=== PATIENT | male | born 1950 | race Caucasian/White ===

== ENCOUNTER 2020-03-08 12:09 | Emergency (ER) | payer OTHER, SELFPAY ==
--- NOTE | 2020-03-08 16:04 | EDPHYS ---
Physician Documentation [facility] Name: Tc Lowe Age: 70 yrs Sex: Male : 1950 Arrival Date: 03/08/2020 Time: 12:14 Bed 26 Private MD: STEPHEN Physician Octavio Collazo HPI: 03/08 15:55 This 70 yrs old Male presents to ER via Ambulatory with complaints of Bump On noman Throat. 15:55 The patient's rash thought to be caused by Dermatitis. The rash is located on the neck. noman The rash can be described as erythematous, raised. Onset: The symptoms/episode began/occurred 3 day(s) ago. Associated signs and symptoms: Pertinent positives: itching, Pain. Severity of symptoms: At their worst the symptoms were mild in the emergency department the symptoms are unchanged. Treatment given at home: OTC lotion/cream. The patient has not experienced similar symptoms in the past. Historical: - Allergies: 12:28 No Known Allergies; ss - PSHx: 12:28 None; ss - Immunization history:: Flu vaccine is not up to date. - Social history:: Smoking status: Patient denies any tobacco usage or history of. - Family history:: not pertinent. ROS: 15:55 Constitutional: Negative for fever, chills, and weight loss, Eyes: Negative for injury, noman pain, redness, and discharge, Neck: Negative for injury, pain, and swelling, Cardiovascular: Negative for chest pain, palpitations, and edema, Respiratory: Negative for shortness of breath, cough, wheezing, and pleuritic chest pain, Abdomen/GI: Negative for abdominal pain, nausea, vomiting, diarrhea, and constipation, Back: Negative for injury and pain, : Negative for injury, bleeding, discharge, and swelling, MS/Extremity: Negative for injury and deformity, Neuro: Negative for headache, weakness, numbness, tingling, and seizure, Psych: Negative for depression, anxiety, suicide ideation, homicidal ideation, and hallucinations, Allergy/Immunology: Negative for hives, rash, and allergies, Endocrine: Negative for neck swelling, polydipsia, polyuria, polyphagia, and marked weight changes, Hematologic/Lymphatic: Negative for swollen nodes, abnormal bleeding, and unusual bruising. 15:55 ENT: 15:55 Neck: Positive for swelling, of the neck. Exam: 15:55 Constitutional: This is a well developed, well nourished patient who is awake, alert, noman and in no acute distress. Head/Face: Normocephalic, atraumatic. Eyes: Pupils equal round and reactive to light, extra-ocular motions intact. Lids and lashes normal. Conjunctiva and sclera are non-icteric and not injected. Cornea within normal limits. Periorbital areas with no swelling, redness, or edema. ENT: Nares patent. No nasal discharge, no septal abnormalities noted. Tympanic membranes are normal and external auditory canals are clear. Oropharynx with no redness, swelling, or masses, exudates, or evidence of obstruction, uvula midline. Mucous membranes moist. Chest/axilla: Normal chest wall appearance and motion. Nontender with no deformity. No lesions are appreciated. Cardiovascular: Regular rate and rhythm with a normal S1 and S2. No gallops, murmurs, or rubs. Normal PMI, no JVD. No pulse deficits. Respiratory: Lungs have equal breath sounds bilaterally, clear to auscultation and percussion. No rales, rhonchi or wheezes noted. No increased work of breathing, no retractions or nasal flaring. Abdomen/GI: Soft, non-tender, with normal bowel sounds. No distension or tympany. No guarding or rebound. No evidence of tenderness throughout. Back: No spinal tenderness. No costovertebral tenderness. Full range of motion. Male : Normal genitalia with no discharge or lesions. Skin: Warm, dry with normal turgor. Normal color with no rashes, no lesions, and no evidence of cellulitis. MS/ Extremity: Pulses equal, no cyanosis. Neurovascular intact. Full, normal range of motion. Neuro: Awake and alert, GCS 15, oriented to person, place, time, and situation. Cranial nerves II-XII grossly intact. Motor strength 5/5 in all extremities. Sensory grossly intact. Cerebellar exam normal. Normal gait. Psych: Awake, alert, with orientation to person, place and time. Behavior, mood, and affect are within normal limits. 15:55 Neck: External neck: erythema, swelling, that is mild, of the thyroid cartilage, right aspect of thyroid, left aspect of thyroid and suprasternal notch. Vital Signs: 12:26 BP 160 / 105; Pulse 90; Resp 16; Temp 98.0(TE); Pulse Ox 98% on R/A; Weight 79.38 kg; ss Height 5 ft. 9 in. (175.26 cm); Pain 0/10; 16:15 BP 148 / 78; Pulse 87; Resp 18; Temp 97.5; Pulse Ox 98% on R/A; ph 12:26 Body Mass Index 25.84 (79.38 kg, 175.26 cm) MDM: 14:42 Patient medically screened. [facility] 15:59 Differential diagnosis: impetigo, allergic reaction. Data reviewed: vital signs, nurses noman notes. Data interpreted: secured entrance monitor: rate is 90 beats/min, rhythm is regular, Pulse oximetry: is not applicable for this patient encounter. 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 03/08 15:54 Order name: Ice pack; Complete Time: 16:07 [facility] Administered Medications: 16:06 Drug: Benadryl 25 mg Route: PO; ph 16:15 Follow up: Response: No adverse reaction ph 16:07 Drug: Bactrim (160 mg-800 mg (DS) 1 tablet Route: PO; ph 16:15 Follow up: Response: No adverse reaction ph 16:07 Drug: predniSONE 60 mg Route: PO; ph 16:15 Follow up: Response: No adverse reaction ph 16:07 Drug: Pepcid 40 mg Route: PO; ph 16:15 Follow up: Response: No adverse reaction ph Disposition: 03/08/20 16:03 Discharged to Home. Impression: Allergic contact dermatitis, Cellulitis and acute lymphangitis of face and neck. - Condition is Stable. - Discharge Instructions: Cellulitis, Adult, Contact Dermatitis, Cellulitis, Adult, [id number], Contact Dermatitis, [id number]. - Prescriptions for Hydroxyzine HCl 25 mg Oral Tablet - take 1 tablet by ORAL route every 6 hours As needed; 30 tablet. Pepcid 20 mg Oral Tablet - take 1 tablet by ORAL route every 12 hours for 10 days; 20 tablet. Bactrim DS 800- 160 mg Oral Tablet - take 1 tablet by ORAL route every 12 hours for 10 days; 20 tablet. Prednisone 20 mg Oral Tablet - take 2 tablet by ORAL route once daily for 5 days; 10 tablet. - Medication Reconciliation Form, Thank You Letter, Antibiotic Education, Prescription Opioid Use form. - Follow up: Private Physician; When: 2 - 3 days; Reason: Recheck today's complaints, Continuance of care, Re-evaluation by your physician. Follow up: Raciel Dalton MD; When: 2 - 3 days; Reason: Recheck today's complaints, Re-evaluation by your physician. - Problem is new. - Symptoms have improved. Signatures: Octavio Collazo MD MD cha Smirch, Shelby, RN RN ss Padmini Arora RN RN ph Corrections: (The following items were deleted from the chart) 16:26 16:03 03/08/2020 16:03 Discharged to Home. Impression: Allergic contact dermatitis; ph Cellulitis and acute lymphangitis of face and neck. Condition is Stable. Forms are Medication Reconciliation Form, Thank You Letter, Antibiotic Education, Prescription Opioid Use. Follow up: Private Physician; When: 2 - 3 days; Reason: Recheck today's complaints, Continuance of care, Re-evaluation by your physician. Follow up: Raciel Dalton; When: 2 - 3 days; Reason: Recheck today's complaints, Re-evaluation by your physician. Problem is new. Symptoms have improved. noman
--- NOTE | 2020-03-08 16:04 | ER ---
Nurse's Notes [facility] Name: Tc Lowe Age: 70 yrs Sex: Male : 1950 Arrival Date: 03/08/2020 Time: 12:14 Bed 26 Private MD: Diagnosis: Allergic contact dermatitis;Cellulitis and acute lymphangitis of face and neck Presentation: 03/08 12:26 Chief complaint: Patient states: Bumps to anterior neck that began 1-2 days ago. ss Coronavirus screen: Client denies travel out of the [place] in the last 14 days. The client reports previous COVID testing was negative. Date of collection: March 04, 2020. Ebola Screen: Patient denies exposure to infectious person. Patient denies travel to an Ebola-affected area in the 21 days before illness onset. Initial Sepsis Screen: Does the patient meet any 2 criteria? No. Patient's initial sepsis screen is negative. Does the patient have a suspected source of infection? No. Patient's initial sepsis screen is negative. Risk Assessment: Do you want to hurt yourself or someone else? Patient reports no desire to harm self or others. Onset of symptoms was March 07, 2020. 12:26 Method Of Arrival: Ambulatory 12:26 Acuity: NACHO 4 ss Historical: - Allergies: 12:28 No Known Allergies; ss - PSHx: 12:28 None; ss - Immunization history:: Flu vaccine is not up to date. - Social history:: Smoking status: Patient denies any tobacco usage or history of. - Family history:: not pertinent. Screenin:39 Abuse screen: Denies threats or abuse. Denies injuries from another. Nutritional ph screening: No deficits noted. Tuberculosis screening: No symptoms or risk factors identified. Fall Risk None identified. Assessment: 15:11 General: Appears in no apparent distress. comfortable, well groomed, Behavior is calm, ph cooperative, appropriate for age, Denies fever. Pain: Denies pain. Neuro: Level of Consciousness is awake, alert, obeys commands, Oriented to person, place, time, situation. Cardiovascular: Capillary refill < 3 seconds in bilateral Patient's skin is warm and dry. Respiratory: Airway is patent Respiratory effort is even, unlabored, Respiratory pattern is regular, symmetrical, Denies shortness of breath. Derm: Skin is intact, is healthy with good turgor, Skin is pink, warm \T\ dry. Rash noted that is itchy, red, on submental area and thyroid cartilage. Musculoskeletal: Circulation, motion, and sensation intact. Range of motion: intact in all extremities. Injury Description: Bite sustained to left posterior aspect of neck is from insect. Vital Signs: 12:26 BP 160 / 105; Pulse 90; Resp 16; Temp 98.0(TE); Pulse Ox 98% on R/A; Weight 79.38 kg; ss Height 5 ft. 9 in. (175.26 cm); Pain 0/10; 16:15 BP 148 / 78; Pulse 87; Resp 18; Temp 97.5; Pulse Ox 98% on R/A; ph 12:26 Body Mass Index 25.84 (79.38 kg, 175.26 cm) ED Course: 12:14 Patient arrived in ED. rg4 12:28 Triage completed. ss 12:28 Arm band placed on left wrist. 14:39 Padmini Arora, RN is Primary Nurse. ph 14:40 Patient has correct armband on for positive identification. Bed in low position. Call ph light in reach. Side rails up X 1. 14:42 Octavio Collazo MD is Attending Physician. noman 16:01 Raciel Dalton MD is Referral Physician. [facility] 16:26 No provider procedures requiring assistance completed. Patient did not have IV access ph during this emergency room visit. Administered Medications: 16:06 Drug: Benadryl 25 mg Route: PO; ph 16:15 Follow up: Response: No adverse reaction ph 16:07 Drug: Bactrim (160 mg-800 mg (DS) 1 tablet Route: PO; ph 16:15 Follow up: Response: No adverse reaction ph 16:07 Drug: predniSONE 60 mg Route: PO; ph 16:15 Follow up: Response: No adverse reaction ph 16:07 Drug: Pepcid 40 mg Route: PO; ph 16:15 Follow up: Response: No adverse reaction ph Outcome: 16:03 Discharge ordered by . noman 16:26 Discharged to home ambulatory, with family. ph 16:26 Condition: good 16:26 Discharge instructions given to family, Instructed on discharge instructions, follow up and referral plans. medication usage, Demonstrated understanding of instructions, follow-up care, medications, Prescriptions given X 4. 16:26 Patient left the ED. ph Signatures: Octavio Collazo MD MD cha Smirch, Shelby, RN RN ss Padmini Arora RN RN ph Meli Ryan rg4 Corrections: (The following items were deleted from the chart) 17:06 16:26 Discharge instructions given to family, Instructed on discharge instructions, ph follow up and referral plans. medication usage, Demonstrated understanding of instructions, follow-up care, medications, Prescriptions given X 2, ph
[2020-03-08] MEDS ORDERED: predniSONE 20 MG TAB ONE (16:16)
[2020-03-08] MEDS ORDERED: SMZ./TMP. 800/160 MG TABLET ONE (16:16)
[2020-03-08] MEDS ORDERED: DIPHENHYDRAMINE 25 MG TAB/CAP ONE (16:16)
[2020-03-08] MEDS ORDERED: FAMOTIDINE 20 MG TAB ONE (16:17)
[2020-03-08 16:41] VITALS: BP 160/105; TEMP 98; O2SAT 98
== END 2020-03-08 16:26 | disposition home or self-care (01) ==
LOC: ER 12:09
DX: L03.211 Cellulitis of face (principal); L03.221 Cellulitis of neck; L03.212 Acute lymphangitis of face; L03.222 Acute lymphangitis of neck
CPT/HCPCS: 99283; J7512

== ENCOUNTER 2020-11-10 10:32 | Emergency (ER) | payer OTHER ==
--- OUTSIDE RECORDS SUMMARY | 2020-11-10 10:34 | XMS REPORT | Continuity of Care Document ---
:1950 Author Organization [facility] t Address [address] [place] [address] [address] [place] [address] Care Team Providers Name Role Phone Unavailable Unavailable Unavailable Problems This patient has no known problems. Allergies, Adverse Reactions, Alerts This patient has no known allergies or adverse reactions. Medications This patient has no known medications. Procedures This patient has no known procedures. Encounters Start End Encounter Admission Attending Care Care Encounter Source Date/Time Date/Time Type Type Clinicians Facility Department ID 2020-06-11 2020-06-11 Outpatient [facility] [id number] [facility] 00:00:00 00:00:00 Estela Burdick ent Clinics Results This patient has no known results.
--- NOTE | 2020-11-10 11:41 | RAD REPORT ---
EXAM DESCRIPTION: US - Abdomen Exam Limited - 11/10/2020 11:34 am CLINICAL HISTORY: Abdominal pain. COMPARISON: None. FINDINGS: The gallbladder wall is not thickened. A gallstone is not seen. The biliary tree is normal caliber. IMPRESSION: Unremarkable gallbladder ultrasound.
[2020-11-10 13:00] LABS: Absolute Lymphocytes (CBC) 0.6 K/uL (0.7-4.9); Basophils % 0.4 % (0-1.3); Hematocrit 41.7 % (39.6-49.0); MPV 8.2 fL (7.6-11.3); RBC Red Blood Cell Count 4.85 M/uL (4.33-5.43)
[2020-11-10 13:09] LABS: Bilirubin Direct 0.2 mg/dL (0-0.2); Bilirubin Total 0.6 mg/dL (0.2-1.0); Protein, Total 7.8 g/dL (6.4-8.2)
--- NOTE | 2020-11-10 13:36 | RAD REPORT ---
EXAM DESCRIPTION: CTAbdomen Pelvis W Contrast - 11/10/2020 1:27 pm CLINICAL HISTORY: Abdominal pain. ABD PAIN COMPARISON: Abdomen Exam Limited dated 11/10/2020 TECHNIQUE: Biphasic CT imaging of the abdomen and pelvis was performed with 100 ml non-ionic IV cont rast. All CT scans are performed using dose optimization technique as appropriate and may include automated exposure control or mA/KV adjustment according to patient size. FINDINGS: Mild linear opacities are present in both lung bases, nonspecific. The liver, spleen, pancreas, adrenal glands and kidneys are within normal limits. No bowel obstruction, free air, free fluid or abscess. Mild inflammatory changes with fecal retention seen throughout the colon. The appendix is normal. No evidence of significant lymphadenopathy. No suspicious bony findings. IMPRESSION: A mild colitis is probably present with moderate fecal retention throughout the colon.
[2020-11-10] MEDS ORDERED: NA CHLORIDE 0.9% 1,000 ML ONE (14:24)
[2020-11-10] MEDS ORDERED: metroNIDAZOLE 500 MG TABLET ONE (15:13)
[2020-11-10] MEDS ORDERED: CIPROFLOXACIN HCL 500 MG TAB ONE (15:13)
--- NOTE | 2020-11-10 16:22 | ER ---
Nurse's Notes [facility] Name: Tc Lowe Age: 70 yrs Sex: Male : 1950 Arrival Date: 11/10/2020 Time: 10:40 Bed 30 Private MD: Diagnosis: Colitis Presentation: 11/10 10:50 Chief complaint: Patient states: N/V since Tuesday. Unable to hold down foods/fluids. ll1 Blood sugars have been higher than usual since Tuesday. Coronavirus screen: Vaccine status: Patient reports receiving the 2nd dose of the covid vaccine. Client denies travel out of the [place] in the last 14 days. Ebola Screen: Patient denies travel to an Ebola-affected area in the 21 days before illness onset. Initial Sepsis Screen: Does the patient meet any 2 criteria? No. Patient's initial sepsis screen is negative. Does the patient have a suspected source of infection? Yes: Other: N/V. Risk Assessment: Do you want to hurt yourself or someone else? Patient reports no desire to harm self or others. Onset of symptoms was November 08, 2020. 10:50 Method Of Arrival: Ambulatory ll1 10:50 Acuity: NACHO 3 ll1 Historical: - Allergies: 10:53 No Known Allergies; ll1 - PMHx: 10:53 Diabetes mellitus; ll1 - PSHx: 10:53 None; ll1 - Immunization history:: Client reports receiving the 2nd dose of the Covid vaccine, Flu vaccine is up to date. - Social history:: Smoking status: Patient denies any tobacco usage or history of. Screenin:28 Abuse screen: Denies threats or abuse. Denies injuries from another. Nutritional ld1 screening: No deficits noted. Tuberculosis screening: No symptoms or risk factors identified. Fall Risk None identified. Assessment: 12:28 General: Appears in no apparent distress. comfortable, Behavior is calm, cooperative, ld1 appropriate for age. Pain: Denies pain. Neuro: Level of Consciousness is awake, alert, obeys commands, Oriented to person, place, time, situation, Appropriate for age. Cardiovascular: Capillary refill < 3 seconds Patient's skin is warm and dry. Cardiovascular: Respiratory: Reports cough that is productive, bloody mucos. Respiratory: Airway is patent Respiratory effort is even, unlabored, Respiratory pattern is regular, symmetrical. GI: Abdomen is flat, non-distended, Reports vomiting. : No signs and/or symptoms were reported regarding the genitourinary system. EENT: No signs and/or symptoms were reported regarding the EENT system. Derm: No signs and/or symptoms reported regarding the dermatologic system. Musculoskeletal: No signs and/or symptoms reported regarding the musculoskeletal system. 13:44 Reassessment: Patient appears in no apparent distress at this time. No changes from ld1 previously documented assessment. Patient is alert, oriented x 3, equal unlabored respirations, skin warm/dry/pink. 15:03 Reassessment: Patient appears in no apparent distress at this time. Patient is alert, ld1 oriented x 3, equal unlabored respirations, skin warm/dry/pink. Patient denies pain at this time. 15:52 Reassessment: Patient appears in no apparent distress at this time. Pt began vomiting ld1 and c/o nausea. Provider notified. See MAR for orders. Vital Signs: 10:50 Resp 18; Weight 77.11 kg; Height 5 ft. 10 in. (177.80 cm); Pain 5/10; ll1 10:55 BP 133 / 77; Pulse 86; Temp 97.6; Pulse Ox 99% ; ll1 11:01 ll1 12:28 BP 129 / 73; Pulse 81; Resp 18; Pulse Ox 95% on R/A; ld1 13:44 BP 132 / 77; Pulse 79; Resp 18; Pulse Ox 96% on R/A; ld1 15:03 BP 142 / 77; Pulse 82; Resp 18; Pulse Ox 99% on R/A; ld1 15:52 BP 124 / 73; Pulse 86; Resp 18; Pulse Ox 97% on R/A; ld1 10:50 Body Mass Index 24.39 (77.11 kg, 177.80 cm) ll1 11:01 fingerstick 172 ll1 ED Course: 10:40 Patient arrived in ED. as 10:50 Arm band placed on. ll1 10:53 Triage completed. ll1 10:57 [facility]ced[facility]C [facility] kb 10:57 Octavio Collazo MD is Attending Physician. kb 12:28 Patient has correct armband on for positive identification. Placed in gown. Bed in low ld1 position. Call light in reach. Side rails up X2. groundwater monitoring technician on. Pulse ox on. NIBP on. Door closed. Noise minimized. Warm blanket given. 12:28 No provider procedures requiring assistance completed. ld1 12:45 Inserted saline lock: 20 gauge in right antecubital area, using aseptic technique. ld1 Blood collected. 13:20 Veronica Bagley is Primary Nurse. aj2 13:27 CT Abd/Pelvis - IV Contrast Only In Process Unspecified. EDMS 16:51 IV discontinued, intact, bleeding controlled, No redness/swelling at site. ld1 Administered Medications: 14:01 Drug: NS 0.9% 1000 ml Route: IV; Rate: 1000 ml; Site: right antecubital; ld1 15:52 Follow up: Response: No adverse reaction; IV Status: Completed infusion; IV Intake: ld1 1000ml 15:01 Drug: Cipro (ciprofloxacin) 500 mg Route: PO; ld1 15:51 Follow up: Response: No adverse reaction ld1 15:01 Drug: Flagyl (metroNIDAZOLE) 500 mg Route: PO; ld1 15:51 Follow up: Response: No adverse reaction ld1 15:55 Drug: Zofran (Ondansetron) 4 mg Route: IVP; Site: right antecubital; kg Intake: 15:52 IV: 1000ml; Total: 1000ml. ld1 Outcome: 16:22 Discharge ordered by . kb 16:40 Condition: stable ld1 16:40 Discharged to home ambulatory, with family. ld1 16:40 Discharge instructions given to patient, family, Instructed on discharge instructions, follow up and referral plans. medication usage, Demonstrated understanding of instructions, follow-up care, medications, Prescriptions given X 4. 16:51 Patient left the ED. ld1 Signatures: Dispatcher [employer] EDMS Mayuri Salcedo, SALLY TURCIOS-Lauren Dinh Lynsay, RN RN 1 Patricia Becker RN RN ld1 Radha Mccarty RN RN kg Veronica Bagley aj2 Corrections: (The following items were deleted from the chart) 15:15 12:45 CORONAVIRUS+Z drawn and sent. ld1 EDMS
--- NOTE | 2020-11-10 16:22 | EDPHYS ---
Physician Documentation [facility] Name: Tc Lowe Age: 70 yrs Sex: Male : 1950 Arrival Date: 11/10/2020 Time: 10:40 Bed 30 Private MD: STEPHEN Physician Octavio Collazo HPI: 11/10 11:55 This 70 yrs old Male presents to ER via Ambulatory with complaints of kb Decreased Appetite. 11:56 The patient presents with abdominal pain in the upper abdomen. Onset: The kb symptoms/episode began/occurred 3 day(s) ago. The symptoms do not radiate. Associated signs and symptoms: Pertinent positives: nausea and vomiting, Pertinent negatives: diarrhea, fever. The symptoms are described as constant. Modifying factors: The symptoms are alleviated by nothing, the symptoms are aggravated by nothing. Severity of pain: At its worst the pain was moderate in the emergency department the pain is unchanged. The patient has not experienced similar symptoms in the past. The patient has not recently seen a physician. Pt reports n/v and abd pain since Tuesday. States his blood sugar was high last night as well (190).. Historical: - Allergies: 10:53 No Known Allergies; ll1 - PMHx: 10:53 Diabetes mellitus; ll1 - PSHx: 10:53 None; ll1 - Immunization history:: Client reports receiving the 2nd dose of the Covid vaccine, Flu vaccine is up to date. - Social history:: Smoking status: Patient denies any tobacco usage or history of. ROS: 11:54 Constitutional: Negative for fever, chills, and weight loss. kb 11:54 Abdomen/GI: Positive for abdominal pain, nausea and vomiting, Negative for diarrhea, constipation. 11:54 All other systems are negative. Exam: 11:56 Constitutional: This is a well developed, well nourished patient who is awake, alert, kb and in no acute distress. Head/Face: Normocephalic, atraumatic. ENT: Moist Mucous membranes Cardiovascular: Regular rate and rhythm with a normal S1 and S2. No gallops, murmurs, or rubs. No pulse deficits. Respiratory: Respirations even and unlabored. No increased work of breathing, no retractions or nasal flaring. Skin: Warm, dry with normal turgor. Normal color. MS/ Extremity: Pulses equal, no cyanosis. Neurovascular intact. Full, normal range of motion. Neuro: Awake and alert, GCS 15, oriented to person, place, time, and situation. Moves all extremities. Normal gait. Psych: Awake, alert, with orientation to person, place and time. Behavior, mood, and affect are within normal limits. 11:56 Abdomen/GI: Inspection: abdomen appears normal, Bowel sounds: normal, in all quadrants, Palpation: soft, in all quadrants, mild abdominal tenderness, in the epigastric area and right upper quadrant. Vital Signs: 10:50 Resp 18; Weight 77.11 kg; Height 5 ft. 10 in. (177.80 cm); Pain 5/10; ll1 10:55 BP 133 / 77; Pulse 86; Temp 97.6; Pulse Ox 99% ; ll1 11:01 ll1 12:28 BP 129 / 73; Pulse 81; Resp 18; Pulse Ox 95% on R/A; ld1 13:44 BP 132 / 77; Pulse 79; Resp 18; Pulse Ox 96% on R/A; ld1 15:03 BP 142 / 77; Pulse 82; Resp 18; Pulse Ox 99% on R/A; ld1 15:52 BP 124 / 73; Pulse 86; Resp 18; Pulse Ox 97% on R/A; ld1 10:50 Body Mass Index 24.39 (77.11 kg, 177.80 cm) ll1 11:01 fingerstick 172 ll1 MDM: 10:57 Patient medically screened. kb 11:53 Data reviewed: vital signs, nurses notes. Data interpreted: Pulse oximetry: on room air kb is 99 %. Interpretation: normal. 16:21 Counseling: I had a detailed discussion with the patient and/or guardian regarding: the kb historical points, exam findings, and any diagnostic results supporting the discharge/admit diagnosis, lab results, radiology results, the need for outpatient follow up, a family practitioner, to return to the emergency department if symptoms worsen or persist or if there are any questions or concerns that arise at home. 11/10 10:57 Order name: Basic Metabolic Panel; Complete Time: 13:14 kb 11/10 10:57 Order name: CBC with Diff; Complete Time: 13:14 kb 11/10 10:57 Order name: Hepatic Function; Complete Time: 13:14 kb 11/10 10:57 Order name: Lipase; Complete Time: 13:14 kb 11/10 11:13 Order name: Glucose, Ancillary Testing; Complete Time: 11:15 EDMS 11/10 10:57 Order name: US Abdomen Limited kb 11/10 11:42 Order name: US; Complete Time: 11:43 EDMS 11/10 13:15 Order name: CT Abd/Pelvis - IV Contrast Only; Complete Time: 13:44 kb 11/10 16:21 Order name: SARS-COV-2 RT PCR; Complete Time: 16:21 EDMS 11/10 10:57 Order name: IV Saline Lock; Complete Time: 12:45 kb 11/10 10:57 Order name: Labs collected and sent; Complete Time: 12:45 kb Administered Medications: 14:01 Drug: NS 0.9% 1000 ml Route: IV; Rate: 1000 ml; Site: right antecubital; ld1 15:52 Follow up: Response: No adverse reaction; IV Status: Completed infusion; IV Intake: ld1 1000ml 15:01 Drug: Cipro (ciprofloxacin) 500 mg Route: PO; ld1 15:51 Follow up: Response: No adverse reaction ld1 15:01 Drug: Flagyl (metroNIDAZOLE) 500 mg Route: PO; ld1 15:51 Follow up: Response: No adverse reaction ld1 15:55 Drug: Zofran (Ondansetron) 4 mg Route: IVP; Site: right antecubital; kg Disposition: 11/11 08:44 Co-signature as Attending Physician, Octavio Collazo MD I agree with the assessment and noman plan of care. Disposition Summary: 11/10/20 16:22 Discharge Ordered Location: Home kb Condition: Stable kb Diagnosis - Colitis kb Followup: kb - With: Emergency Department - When: As needed - Reason: Worsening of condition Followup: kb - With: Private Physician - When: 2 - 3 days - Reason: Recheck today's complaints, Continuance of care, Re-evaluation by your physician Discharge Instructions: - Discharge Summary Sheet kb - Colitis kb Forms: - Medication Reconciliation Form kb - Thank You Letter kb - Antibiotic Education kb - Prescription Opioid Use kb Prescriptions: - Flagyl 500 mg Oral Tablet - take 1 tablet by ORAL route every 8 hours for 10 days; 30 tablet; Refills: 0, kb Product Selection Permitted - Zofran 4 mg Oral Tablet - take 1 tablet by ORAL route every 6 hours As needed; 20 tablet; Refills: 0, kb Product Selection Permitted - Cipro 500 mg Oral Tablet - take 1 tablet by ORAL route every 12 hours for 10 days; 20 tablet; Refills: 0, kb Product Selection Permitted - dicyclomine 20 mg Oral Tablet - take 1 tablet by ORAL route every 6 hours As needed; 20 tablet; Refills: 0, kb Product Selection Permitted Signatures: Dispatcher [employer] Mayuri Wan, [employer]BER-C [employer]BER-Octavio Alexandra MD MD cha Lewis, Lynsay, RN RN ll1 Patricia Becker RN RN ld1 Radha Mccarty RN RN kg Corrections: (The following items were deleted from the chart) 11/10 15:15 10:58 CORONAVIRUS+BRZ ordered. [facility]
[2020-11-10 17:04] VITALS: TEMP 97.6
[2020-11-10 17:09] VITALS: BP 124/73; O2SAT 97
== END 2020-11-10 16:51 | disposition home or self-care (01) ==
LOC: ER 10:32
DX: K52.9 Noninfective gastroenteritis and colitis, unspecified (principal); E11.9 Type 2 diabetes mellitus without complications; Z20.822 Contact with and (suspected) exposure to COVID-19
CPT/HCPCS: 96361; 85025; 80048; 36415; 82947; 80076; 83690; 74177; 76705; 96374; 99284; U0003; Q9967; J7030

== ENCOUNTER 2022-07-12 06:27 | Day surgery (SDC) | payer MEDICARE ==
[2022-07-12] MEDS ORDERED: NA CHLORIDE 0.9% 1,000 ML ONE (07:02)
[2022-07-12] MEDS ORDERED: propofoL 200 MG/20 ML VIAL IV ONE ×2 (08:21→08:22)
[2022-07-12] MEDS ORDERED: LIDOCAINE 1% MPF 5 ML VIAL ONE (08:22)
[2022-07-12 10:13] VITALS: O2SAT 99
[2022-07-12 10:14] VITALS: BP 112/60; TEMP 97.4
== END 2022-07-12 10:00 | disposition home or self-care (01) ==
LOC: OR 06:27
PROVIDERS: ATTEND Surgery
PROC: 0DBL8ZX Excision of Transverse Colon, Via Natural or Artificial Opening Endoscopic, Diagnostic (ICD-10-PCS; 2022-07-12)
PROC: 0DBN8ZX Excision of Sigmoid Colon, Via Natural or Artificial Opening Endoscopic, Diagnostic (ICD-10-PCS; principal; 2022-07-12 08:30)
DX: R10.32 Left lower quadrant pain (principal); K57.30 Diverticulosis of large intestine without perforation or abscess without bleeding; K64.4 Residual hemorrhoidal skin tags; K64.8 Other hemorrhoids; K63.5 Polyp of colon; D12.5 Benign neoplasm of sigmoid colon; D12.3 Benign neoplasm of transverse colon
CPT/HCPCS: 82947; 88305; 45384; J2704 ×2; J2001; J7030

== ENCOUNTER 2022-07-26 09:52 | Day surgery (SDC) | payer MEDICARE ==
[2022-07-26] MEDS ORDERED: NA CHLORIDE 0.9% 1,000 ML ONE (10:14)
[2022-07-26 10:41] LABS: Potassium 4.6 mEq/L (3.5-5.1)
--- NOTE | 2022-07-26 10:53 | RAD REPORT ---
EXAM DESCRIPTION: [place] And Lat (2 Views)07/26/2022 10:43 am CLINICAL HISTORY: PREOP COMPARISON: CHEST SINGLE VIEW dated 06/17/2014 TECHNIQUE: PA and lateral views of the chest. FINDINGS: The lungs are clear. No pneumothorax or effusion. The cardiomediastinal contours are unrem arkable, apart from mild tortuosity of the thoracic aorta. IMPRESSION: No acute cardiopulmonary process.
[2022-07-26 10:58] LABS: Absolute Lymphocytes (CBC) 1.1 K/uL (0.7-4.9); Hematocrit 40.4 % (39.6-49.0); MCV 87.8 fL (80-100); MPV 8.2 fL (7.6-11.3)
[2022-07-26] MEDS ORDERED: FAMOTIDINE 20 MG/2 ML VIAL IV SCH (12:00)
[2022-07-26] MEDS ORDERED: FENTANYL CITR 100 MCG/2 ML ONE (12:54)
[2022-07-26] MEDS ORDERED: MIDAZOLAM HCL 2 MG/2 ML INJ ONE (12:54)
[2022-07-26] MEDS ORDERED: propofoL 200 MG/20 ML VIAL IV ONE (12:54)
[2022-07-26] MEDS ORDERED: ROCURONIUM 50 MG/5 ML VIAL IV ONE (12:55)
[2022-07-26] MEDS ORDERED: ONDANSETRON 4 MG/2 ML VIAL ONE ×2 (12:56→15:23)
[2022-07-26] MEDS ORDERED: LIDOCAINE 2% MPF 5 ML VIAL ONE (12:56)
[2022-07-26] MEDS ORDERED: CEFAZOLIN SODIUM 1 GM/VIAL ONE (13:33)
[2022-07-26] MEDS ORDERED: GLYCOPYRROLATE 0.2 MG/ML SYR ONE (13:53)
[2022-07-26] MEDS ORDERED: NEOSTIGMINE 1 MG/ML -10 ML VIAL ONE (13:57)
[2022-07-26] MEDS ORDERED: KETOROLAC 30 MG/ML INJ ONE (13:57)
--- NOTE | 2022-07-26 14:09 | P.BOP ---
Preoperative diagnosis: tender left inguinal hernia Postoperative diagnosis: same Primary procedure: Laparoscopic repair of tender left inguinal hernia with mesh Estimated blood loss: <5cc Specimen: none Findings: left inguinal hernia Anesthesia: General Complications: None Implants: medium 3D mesh Transferred to: Recovery Room Condition: Good
[2022-07-26] MEDS: HYDROMORPHONE HCL 1 MG/ML INJ ONE ×2 (14:50→14:55)
[2022-07-26 14:53] VITALS: TEMP 97
--- NOTE | 2022-07-26 15:22 | EKG ---
Test Date: 2022-07-26 Test Time: 10:13:15 Sole Assessor: NATALY MEASUREMENT RESULTS: Intervals: Rate: 75 GA: 200 QRSD: 92 QT: 380 QTc: 424 [place]: P: 47 GA: 200 QRS: 88 T: 61 INTERPRETIVE STATEMENTS: Normal sinus rhythm Normal ECG No previous ECG available for comparison Electronically Signed On 07-26-22 15:21:38 CDT by Saurabh Su
[2022-07-26 16:20] VITALS: BP 147/77; O2SAT 99
--- NOTE | 2022-07-27 12:59 | OP ---
Date of Procedure: 07/27/2022 Surgeon: Hugo Hui MD Preoperative Diagnosis: Tender left inguinal hernia. Postoperative Diagnosis: Tender left inguinal hernia. Procedure: Laparoscopic repair of tender left inguinal hernia with mesh. Estimated Blood Loss: Less than 5 cc. Findings: Left inguinal hernia. Anesthesia: General plus local. Implants: A medium 3D mesh. Complications: None. Indication: This is the case of a 72-year-old patient, who comes to us with a tender left inguinal h ernia. Benefits, alternatives, and risks of repair fully explained, which include, but not limited t o infection, bleeding, damage to adjacent structures, anesthesia complication, numbness, pain, recurr ence, AK, and even . He also understands this may not relieve any symptoms. He might need more than one surgical intervention. He also understands that we might have to put mesh in that region, so pros and cons of mesh placement were discussed with the patient and all the questions were answere d to his satisfaction. He signed a consent. The area of concern was marked by me and the patient in the holding room. Procedure In Detail: The patient was brought to the operating room, placed in supine position. Anes thesia was done without complication. The abdominal and inguinal region were prepped and draped in t he usual sterile fashion. Local anesthesia was applied followed by sharp incision of the skin in the infraumbilical region. The incision was carried down until we find the anterior rectus sheath that was basically retracted laterally to expose posterior rectus sheath. After that, the extraperitoneal space was gently developed with the help of blunt dissection and then placed a Spacemaker balloon-ti pped trocar in that region, directed towards the pubic symphysis and with the scopes under direct vis ualization, we proceeded to inflate the balloon to create the extraperitoneal space. After that, the balloon was deflated and removed. The area was insufflated and then we placed a 5 mm trocar at the area just above the pubic symphysis and another snf between the first and the second 1. The prep eritoneal space was further developed by exposing the inferior epigastric vessels and keeping them an terior to the dissection. Aaron ligament was dissected laterally to the junction with the iliac vei ns. The dissection continued inferiorly to the iliopubic tract avoiding damage to the femoral branch of the genitofemoral nerve and lateral femoral cutaneous nerve. The cord structures were identified , carefully skeletonized. We found an indirect sac present that was carefully retracted back into th e peritoneal cavity under direct visualization. The cord structures were protected at all times. At that moment, I proceeded to roll a medium mesh 3D on the working side to the trocar incision. The m esh was placed in a way to cover direct and indirect spaces. The mesh was secured in place lateral a nd superior to the iliopubic tract and inferior medial to the Aaron ligament. This was done with th e help of SorbaFix fixation device. After making sure we have complete hemostasis and placing some l ocal anesthetic of that area, I proceeded to stop the insufflation and allowed the air to escape as w e hold the mesh in place and making sure the sac is still retracted into the peritoneum. At that [facility], we removed the trocars. We closed the fascia with #1 Vicryl and closed the skin in a subcuticul ar fashion with 3-0 chromic and Steri-Strips on top. Sponge count, instrument counts correct. The p atient tolerated the procedure well. The patient was sent to recovery in stable condition. At the e nd of the case, testicles were in the scrotum. LEE/MEGAN Voice ID: [id number] Report ID: [id number]
--- NOTE | 2022-07-27 12:59 | DS ---
Date of Discharge: 07/26/2022 Diagnosis: Tender left inguinal hernia. Procedure: Laparoscopic repair of tender left inguinal hernia with mesh. Disposition: Home. Activity: As tolerated. No heavy lifting. Plan: Follow up in my office in 1 week. Call for appointment at [phone]. Keep area dry for 48 marlon rs, then may shower. Keep Steri-Strips intact. LEE/MEGAN Voice ID: [id number] Report ID: [id number]
== END 2022-07-26 16:04 | disposition home or self-care (01) ==
LOC: OR 09:52
PROVIDERS: ATTEND Surgery
PROC: 0YU64JZ Supplement Left Inguinal Region with Synthetic Substitute, Percutaneous Endoscopic Approach (ICD-10-PCS; principal; 2022-07-26 12:30)
DX: K40.90 Unilateral inguinal hernia, without obstruction or gangrene, not specified as recurrent (principal)
CPT/HCPCS: 93005; 85025; 80048; 36415; 82947; 71046; 49650; J2704; J2710; J2001; J2250; J3010; J1170; J2405 ×2; J7030; J0690

== ENCOUNTER 2024-06-08 15:17 | Emergency (ER) | payer MEDICARE ==
[2024-06-08] MEDS ORDERED: NA CHLORIDE 0.9% 500 ML ONE (16:03)
[2024-06-08 16:18] LABS: Specific Gravity 1.017 (1.005-1.030); Sqamous Epithelial <5 /HPF (None Seen); Urine Bacteria <20 /HPF (<20); Urine Bilirubin NEGATIVE (Negative); Urine Blood 1+ (Negative); Urine Clarity Extremely Turbid (Clear); Urine Color Yellow (Yellow); Urine Culture Reflex Order REFLEXED; Urine Glucose TRACE (Negative); Urine Ketones TRACE (Negative); Urine Microscopic Reflex YN ORDER UMIC; Urine Mucus Slight /HPF (None Seen); Urine Nitrite NEGATIVE (Negative); Urine Protein 3+ (Negative); Urine Urobilinogen Normal (Normal); Urine WBC >50 /HPF (<5); Urine WBC Clump Rare /HPF (None Seen)
[2024-06-08 16:24] LABS: Absolute Basophils 0.1 K/uL (0-0.5); Absolute Eosinophils 0.1 K/uL (0-0.5); Absolute Lymphocytes (CBC) 0.6 K/uL (0.7-4.9); Absolute Monocytes 0.9 K/uL (0.1-1.3); Absolute Neutrophil 12.9 K/uL (1.8-8.0); Basophils % 0.4 % (0-1.3); Eosinophils % 0.4 % (0-4.4); Hematocrit 30.3 % (39.6-49.0); Hemoglobin 9.9 g/dL (13.6-17.9); Lymphocytes % 4.4 % (15.3-44.8); MCH 28.6 pg (27.0-35.0); MCHC 32.8 g/dL (32.0-36.0); MPV 8.1 fL (7.6-11.3); Monocytes % 5.9 % (3.3-12.3); Neutrophils % 88.9 % (41.7-73.7); Platelets 216 thou/uL (152-406); RBC Red Blood Cell Count 3.48 M/uL (4.33-5.43); Red Cell Distribution Width 15.7 % (12.1-15.2)
[2024-06-08 16:25] LABS: PT Prothrombin Time 13.4 SECONDS (10-13.0); PTT, Activated Partial Thromb 31.6 SECONDS (27.2-37.4); Protime INR 1.18
[2024-06-08 16:29] LABS: Anion Gap 11.6 mEq/L (5.0-15.0); Potassium 4.6 mEq/L (3.5-5.1)
[2024-06-08] MEDS ORDERED: levoFLOXacin 750 MG TAB ONE (17:35)
[2024-06-08] MEDS ORDERED: ACETAMINOPHEN 325 MG TABLET ONE (17:35)
--- NOTE | 2024-06-08 18:16 | ER ---
Nurse's Notes [facility] Name: Tc Lowe Age: 74 yrs Sex: Male : 1950 Arrival Date: 06/08/2024 Time: 15:17 Bed 6 Private MD: Diagnosis: UTI/ Urinary tract infection, site not specified;Dysuria Presentation: 06/08 15:42 Chief complaint: Patient states: Burning with urination, incontinence x 1 days, Liu jl7 removed yesterday. Coronavirus screen: At this time, the client does not indicate any symptoms associated with coronavirus-19. Ebola Screen: No symptoms or risks identified at this time. Initial Sepsis Screen: Does the patient meet any 2 criteria? No. Patient's initial sepsis screen is negative. Does the patient have a suspected source of infection? No. Patient's initial sepsis screen is negative. Risk Assessment: Do you want to hurt yourself or someone else? Patient reports no desire to harm self or others. Onset of symptoms is unknown. 15:42 Method Of Arrival: Wheelchair jl7 15:42 Acuity: NACHO 3 jl7 Triage Assessment: 15:44 General: Appears in no apparent distress. uncomfortable, Behavior is calm, cooperative, jl7 appropriate for age. Pain: Complains of pain in pelvis Pain currently is 5 out of 10 on a pain scale. : Reports burning with urination. Historical: - Allergies: 15:44 No Known Allergies; jl7 - PMHx: 15:44 diabetes mellitus; colon cancer; Kidney disease; jl7 - PSHx: 16:30 Colon resection; aa5 - Immunization history:: Adult Immunizations unknown. - Infectious Disease History:: Denies. - Social history:: Smoking status: unknown. - Family history:: not pertinent. - Hospitalizations: : No recent hospitalization is reported. Screenin:00 [facility] ED Fall Risk Assessment (Adult) History of falling in the last 3 months, aa5 including since admission No falls in past 3 months (0 pts) Confusion or Disorientation No (0 pts) Intoxicated or Sedated No (0 pts) Impaired Gait No (0 pts) Mobility Assist Device Used No (0 pt) Altered Elimination No (0 pt) Score/Fall Risk Level 0 - 2 = Low Risk Oriented to surroundings, Maintained a safe environment, Educated pt \\T\\ family on fall prevention, incl call for assistance when getting out of bed, Assessed \\T\\ reinforced patient's understanding of fall precautions. Abuse screen: Denies threats or abuse. Nutritional screening: No deficits noted. Tuberculosis screening: No symptoms or risk factors identified. Assessment: 16:00 General: Appears comfortable, Behavior is calm, cooperative. Pain: Complains of pain in aa5 pelvis Pain currently is 3 out of 10 on a pain scale. Quality of pain is described as "sore from the surgery" Is continuous. Neuro: Level of Consciousness is awake, alert, obeys commands, Oriented to person, place, time, situation. Cardiovascular: Patient's skin is warm and dry. Respiratory: Airway is patent Respiratory effort is even, unlabored, Respiratory pattern is regular, symmetrical. GI: Abdomen is round non-distended, Last BM was June 04, 2024. Bowel sounds present X 4 quads. Abdomen is tender to palpation in suprapubic area Reports decreased appetite today Patient currently denies nausea, vomiting. : Reports burning with urination, urinary incontinence since having Liu removed yesterday. EENT: No signs and/or symptoms were reported regarding the EENT system. Derm: Skin is pink, warm \\T\\ dry. 3 incisions noted to lower abdomen, no s/s of infection noted to incision sites. Musculoskeletal: Range of motion: intact in all extremities. 16:30 Reassessment: Patient is alert, oriented x 3, equal unlabored respirations, skin aa5 warm/dry/pink. 17:41 Reassessment: Patient is alert, oriented x 3, equal unlabored respirations, skin aa5 warm/dry/pink. 18:15 Reassessment: Patient is alert, oriented x 3, equal unlabored respirations, skin aa5 warm/dry/pink. Vital Signs: 15:42 BP 105 / 55; Pulse 109; Resp 17; Temp 99.2; Pulse Ox 100% ; Weight 74.39 kg; Height 5 jl7 ft. 8 in. ; Pain 5/10; 17:30 BP 118 / 61; Pulse 92; Resp 16 S; Temp 98.9(O); Pulse Ox 99% on R/A; aa5 18:00 BP 119 / 67; Pulse 90; Resp 18 S; Pulse Ox 99% on R/A; aa5 15:42 Body Mass Index 24.94 (74.39 kg, 172.72 cm) jl7 15:42 Pain Scale: Adult jl7 ED Course: 15:25 Patient arrived in ED. al6 15:37 Ted Matthew MD is Attending Physician. rn 15:44 Triage completed. jl7 15:44 Arm band placed on right wrist. jl7 15:50 Alicia Mccullough, RN is Primary Nurse. aa5 16:00 Patient has correct armband on for positive identification. Bed in low position. Call aa5 light in reach. Side rails up X2. Adult w/ patient. Pulse ox on. NIBP on. 16:08 Initial lab(s) drawn, by me, sent to lab. Inserted saline lock: 20 gauge in right aa5 antecubital area, using aseptic technique. Blood collected. Flushed with 10 mL NS. 16:12 No provider procedures requiring assistance completed. aa5 18:15 IV discontinued, intact, bleeding controlled, No redness/swelling at site. Pressure aa5 dressing applied. Administered Medications: 16:10 Drug: NS 0.9% IV 500 ml 500 ml IV at 1 bolus once; to be given as a bolus over 30 aa5 minutes Volume: 500 ml; Route: IV; Rate: 1 bolus; Site: right antecubital; 16:40 Follow up: IV Status: Completed infusion; IV Intake: 500ml aa5 17:41 Drug: LevOfloxacin PO 750 mg PO once Route: PO; aa5 18:15 Follow up: Response: No adverse reaction aa5 17:41 Drug: Acetaminophen PO 650 mg PO once Route: PO; aa5 18:15 Follow up: Response: No adverse reaction aa5 Medication: 16:12 VIS not applicable for this client. aa5 Intake: 16:40 IV: 500ml; Total: 500ml. aa5 Outcome: 18:15 Discharge ordered by . rn 18:15 Discharged to home via wheelchair, with family, aa5 18:15 Condition: stable aa5 18:15 Discharge instructions given to patient, family, Instructed on discharge instructions, follow up and referral plans. medication usage, Demonstrated understanding of instructions, follow-up care, medications, Prescriptions given X 1, 18:21 Patient left the ED. aa5 Signatures: Ted Matthew MD MD rn Calderon, Audri, RN RN aa5 Kristen Thibodeaux RN RN jl7 Josie Salinas6 Corrections: (The following items were deleted from the chart) 17:32 17:30 BP 118 / 61; Pulse 92bpm; Resp 16bpm; Spontaneous; Pulse Ox 99% RA; aa5 aa5
--- NOTE | 2024-06-08 18:16 | EDPHYS ---
Physician Documentation [facility] Name: Tc Lowe Age: 74 yrs Sex: Male : 1950 Arrival Date: 06/08/2024 Time: 15:17 Bed 6 Private MD: ED Physician Ted Matthew HPI: 06/08 17:01 This 74 yrs old Male presents to ER via Wheelchair with complaints of Penile rn Pain. 17:01 The patient presents with urinary symptoms, dysuria. Onset: The symptoms/episode rn began/occurred yesterday. Severity of symptoms: At their worst the symptoms were moderate, in the emergency department the symptoms are unchanged. The patient has not experienced similar symptoms in the past. Patient reports recent had partial colon resection a few weeks ago, had Liu catheter placed at that time, was removed yesterday, now having burning sensation when urinates. No fever or chills. Patient reports able to urinate and empty just hurts through the shaft of the penis to the tip of the penis. Passing gas. Reports constipation. Just saw his surgeon yesterday and told him to give it a few more days and stool softeners. Denies abdominal pain. No chest pain or shortness of breath here for urinary symptoms.. Historical: - Allergies: 15:44 No Known Allergies; jl7 - PMHx: 15:44 diabetes mellitus; colon cancer; Kidney disease; jl7 - PSHx: 16:30 Colon resection; aa5 - Immunization history:: Adult Immunizations unknown. - Infectious Disease History:: Denies. - Social history:: Smoking status: unknown. - Family history:: not pertinent. - Hospitalizations: : No recent hospitalization is reported. ROS: 17:01 Constitutional: Negative for fever, chills, and weight loss, Cardiovascular: Negative rn for chest pain, palpitations, and edema, Respiratory: Negative for shortness of breath, cough, wheezing, and pleuritic chest pain, Abdomen/GI: Negative for abdominal pain, nausea, vomiting, diarrhea, and constipation, Back: Negative for injury and pain, : Positive for burning sensation to penis Exam: 17:01 Constitutional: This is a well developed, well nourished patient who is awake, alert, rn and in no acute distress. Cardiovascular: Tachycardic, regular. Respiratory: Speaking full sentences, unlabored. Abdomen/GI: Soft, nontender Vital Signs: 15:42 BP 105 / 55; Pulse 109; Resp 17; Temp 99.2; Pulse Ox 100% ; Weight 74.39 kg; Height 5 jl7 ft. 8 in. ; Pain 5/10; 17:30 BP 118 / 61; Pulse 92; Resp 16 S; Temp 98.9(O); Pulse Ox 99% on R/A; aa5 18:00 BP 119 / 67; Pulse 90; Resp 18 S; Pulse Ox 99% on R/A; aa5 15:42 Body Mass Index 24.94 (74.39 kg, 172.72 cm) jl7 15:42 Pain Scale: Adult jl7 MDM: 15:59 Medical Screening Exam initiated rn 18:14 Differential diagnosis: UTI, urethritis. Data reviewed: vital signs, nurses notes, dental laboratory technician apprentice test result(s), and as a result, I will discharge patient. Counseling: I had a detailed discussion with the patient and/or guardian regarding the historical points, exam findings, and any diagnostic results supporting the discharge/admit diagnosis, lab results, the need for outpatient follow up, to return to the emergency department if symptoms worsen or persist or if there are any questions or concerns that arise at home. Special discussion: I discussed with the patient/guardian in detail that at this point there is no indication for admission to the hospital. It is understood, however, that if the symptoms persist or worsen the patient needs to return immediately for re-evaluation. ED course: Patient with mild urinary tract infection. Also likely having pain from Liu catheter removal. No gross hematuria. No trouble urinating. Feels like he can empty. No signs of sepsis. Will discharge home with antibiotics and given strict return precautions. I have personally reviewed all of the results, including but not limited to blood tests deemed necessary to safely discharge this patient at this time. All results given to and printed out for patient. I personally went over all the results with the patient and answered all questions. Patient will follow-up with PCP and or specialist as discussed. Return precautions given and understood.. 06/08 15:54 Order name: Urinalysis w/ reflexes; Complete Time: 17:28 rn 06/08 15:59 Order name: CBC with Diff; Complete Time: 17:28 rn 06/08 15:59 Order name: Basic Metabolic Panel; Complete Time: 17:28 rn 06/08 15:59 Order name: Protime (+inr); Complete Time: 17:28 rn 06/08 15:59 Order name: Ptt, Activated; Complete Time: 17:28 rn 06/08 16:22 Order name: Urine Culture EDMS 06/08 15:59 Order name: IV Start; Complete Time: 16:10 rn Administered Medications: 16:10 Drug: NS 0.9% IV 500 ml 500 ml IV at 1 bolus once; to be given as a bolus over 30 aa5 minutes Volume: 500 ml; Route: IV; Rate: 1 bolus; Site: right antecubital; 16:40 Follow up: IV Status: Completed infusion; IV Intake: 500ml aa5 17:41 Drug: LevOfloxacin PO 750 mg PO once Route: PO; aa5 18:15 Follow up: Response: No adverse reaction aa5 17:41 Drug: Acetaminophen PO 650 mg PO once Route: PO; aa5 18:15 Follow up: Response: No adverse reaction aa5 Disposition Summary: 06/08/24 18:15 Discharge Ordered Notes: Location: Home rn Problem: new rn Symptoms: have improved rn Condition: Stable rn Diagnosis - UTI/ Urinary tract infection, site not specified rn - Dysuria rn Followup: rn - With: Private Physician - When: As needed - Reason: Recheck today's complaints, Re-evaluation by your physician Discharge Instructions: - Discharge Summary Sheet rn - Dysuria rn - Urinary Tract Infection, Adult rn Forms: - Medication Reconciliation Form rn - Antibiotic rubber turner - Prescription Opioid Use rn - Patient Portal Instructions rn - Leadership Thank You Letter rn Prescriptions: - levofloxacin 500 mg Oral tablet - take 1 tablet ORAL route once daily for 10 days; 10 tablet; Refills: 0, Product rn Selection Permitted Signatures: Dispatcher [employer] EDMS Ted Matthew MD MD rn Calderon, Audri RN RN aa5 Kristen Thibodeaux RN RN jl7 Corrections: (The following items were deleted from the chart) 15:54 15:54 Urinalysis+U.LAB.BRZ ordered. EDHI EDHI
[2024-06-08 18:47] VITALS: BP 105/55; TEMP 99.2; O2SAT 100
== END 2024-06-08 18:21 | disposition home or self-care (01) ==
LOC: ER 15:17
DX: N39.0 Urinary tract infection, site not specified (principal); E11.9 Type 2 diabetes mellitus without complications; Z85.038 Personal history of other malignant neoplasm of large intestine
CPT/HCPCS: 87088; 85025; 81001; 87086; 80048; 36415; 85610; 85730; 99284; J7040